=== PATIENT | male | born 1985 | race Caucasian/White ===

== ENCOUNTER → 2023-06-25 14:36 | Outpatient (CLI) | payer OTHER, SELFPAY ==
--- NOTE | 2023-06-25 | DI.CT.S_ITS ---
PROCEDURE: CT LE LT W CON INDICATIONS: FX LATERAL LEFT ANKLE AND 5TH METATARSAL TECHNIQUE: Noncontrast 1-1.5 mm axial sections acquired from above the tibiotalar joint to the bottom of the calcaneus, with coronal and sagittal reformats. COMPARISON: None. FINDINGS: Image quality: Excellent. Bones: Alignment of left foot and ankle is anatomic. Acute appearing comminuted fracture involving distal shaft and neck of 5th metatarsal bone is seen with medial and dorsal displacement at fracture site. Small calcification adjacent to lateral aspect of inferior talus is seen, suggestive of avulsion injury of indeterminate age. No other fracture or dislocation is noted. No suspicious bony lesions. Soft tissues: There is marked soft tissue swelling and edema over lateral and anterior aspect of distal lower leg and over dorsal and lateral aspect of midfoot and hindfoot. No discrete drainable fluid collection is noted. No abnormal soft tissue calcifications. No gross full-thickness extensor, flexor, or peroneus tendon rupture. Achilles tendon is intact. IMPRESSION: 1. Acute comminuted and slightly displaced fracture involving distal shaft and neck of 5th metatarsal bone. 2. Age indeterminate avulsion injury involving lateral aspect of inferior talus. 3. Significant soft tissue swelling and edema over dorsal and lateral aspect of midfoot and hindfoot. No discrete drainable fluid collection. 4. No definite full-thickness tendon rupture. No abnormal soft tissue calcifications. Dictated by: Bala Archer M.D. on 06/26/2023 at 10:50 Approved by: Bala Archer M.D. on 06/26/2023 at 10:54
== END ==
PROVIDERS: Referring Provider Orthopaedic Surgery; Visit Provider Orthopaedic Surgery
DX: S92.352A Displaced fracture of fifth metatarsal bone, left foot, initial encounter for closed fracture (principal); S92.192A Other fracture of left talus, initial encounter for closed fracture; X58.XXXA Exposure to other specified factors, initial encounter
CPT/HCPCS: 73700